=== PATIENT | male | born 1985 | race Caucasian/White ===

== ENCOUNTER → 2018-11-28 | Outpatient (CLI) | payer BC | LOC: COL.CARD 07:46 | DX: R94.31 Abnormal electrocardiogram [ECG] [EKG] (principal) ==

== ENCOUNTER 2019-05-16 18:58 | Emergency (ER) | payer OTHER ==
[~2019-05-16] VITALS: Ht 167.6 cm; Wt 90.9 kg
[2019-05-16 19:36] VITALS: BP 140/78; TEMP 98.2
[2019-05-16] MEDS ORDERED: DOXYCYCLINE 10100 MG PO (21:33)
[2019-05-16 22:31] VITALS: PULSE 78
== END 2019-05-16 22:31 | disposition home or self-care (01) ==
LOC: COL.ER 18:58
DX: S61.451A Open bite of right hand, initial encounter (principal); Z88.0 Allergy status to penicillin; W54.0XXA Bitten by dog, initial encounter; Y92.009 Unspecified place in unspecified non-institutional (private) residence as the place of occurrence of the external cause

== ENCOUNTER → 2023-03-13 | Outpatient (CLI) | payer BC ==
[~2023-03-13] MED LIST: DOXYCYCLINE 10100 MG PO
== END ==
LOC: COL.RAD 06:47
DX: R10.11 Right upper quadrant pain (principal); R74.8 Abnormal levels of other serum enzymes